=== PATIENT | female | born 1965 | race Caucasian/White ===

== ENCOUNTER 2020-05-07 11:36 | Day surgery (SDC) | payer OTHER ==
[~2020-05-07 11:36] MED LIST: PROPOFOL 200 MG/20 ML VIAL ONE
[2020-05-07] MEDS ORDERED: Fentanyl 100 MCG/2 ML VIAL ONE ×2 (12:46→13:22)
[2020-05-07] MEDS ORDERED: Midazolam HCl 2 mg/2 ml Vial ONE (13:27)
[2020-05-07] MEDS ORDERED: Propofol 500 MG/50 ML VIAL ONE (13:27)
[2020-05-07] MEDS ORDERED: HYDROcodone/Acetaminophen 5/325 mg Tablet ONE (14:45)
--- NOTE | 2020-05-07 16:07 | RAD ---
EXAM: 2 views of the left ankle HISTORY: Ankle pain COMPARISON: None FINDINGS: 2 limited fluoroscopic views of the left ankle shows a fracture of the medial malleolus. Th ere is also a spiral fracture of the distal fibula. An overlying fiberglass splint obscures fine bony and soft tissue detail. There is normal alignment of the ankle mortise. IMPRESSION: Bimalleolar fracture
--- NOTE | 2020-05-08 10:03 | OP ---
DATE OF PROCEDURE: 05/07/2020 PREOPERATIVE DIAGNOSIS: Left ankle fracture dislocation with subluxation of talus from underneath mortise. POSTOPERATIVE DIAGNOSIS: Left ankle fracture dislocation with subluxation of talus from underneath mortise. PROCEDURE PERFORMED: Closed reduction of left ankle subluxation with application of splint. ANESTHESIA: TIVA. TOP LIFT SCOURER: Abran Diaz PA-C TOURNIQUET TIME: Zero. ESTIMATED BLOOD LOSS: Zero. COMPLICATIONS: None. DRAINS: None. SPECIMENS: None. OUTCOME: Satisfactory closed reduction. INDICATIONS FOR PROCEDURE: The patient is a pleasant 54-year-old lady, who presents today for evaluation of a left ankle fracture dislocation. She reports on May 04, 2020, she was stepping out of her 's truck when she landed awkwardly and rolled her left ankle. She was seen and evaluated into the emergency room in [place], [place]. However, they were not able to satisfactorily close reduce the significant lateral shift of the talus at the mortise. Upon evaluation in my clinic earlier today, the patient was found to have fracture blisters medially and a clearly displaced fracture with near dislocation of the talus. As such, the patient was now brought to the operating room for closed reduction maneuver to relieve the tension off the soft tissues with a planned staged stabilization procedure once the soft tissue has recovered. Informed consent has been obtained. I believe all questions have been answered. DESCRIPTION OF PROCEDURE: Following the induction of TIVA anesthesia, a closed reduction was performed and this was confirmed under AP and lateral C-arm imaging. Once acceptable alignment was achieved, the medial fracture blister was unroofed and then dressed with Xeroform and gauze dressing. This was then followed by application of a Trilaminar well-padded short-leg splint. At the completion of splint application, another AP and lateral C-arm image was obtained that showed continued good alignment of the fracture dislocation. The patient was subsequently transferred to the recovery room in stable condition. There were no complications. She tolerated the procedure well. Job ID: [id number]
== END 2020-05-07 15:35 | disposition home or self-care (01) ==
LOC: SDC 11:36
PROVIDERS: ATTEND Orthopaedic Surgery
PROC: 0QSHXZZ Reposition Left Tibia, External Approach (ICD-10-PCS; principal; 2020-05-07)
DX: S82.842A Displaced bimalleolar fracture of left lower leg, initial encounter for closed fracture (principal); Z79.899 Other long term (current) drug therapy; V48.4XXA Person boarding or alighting a car injured in noncollision transport accident, initial encounter
CPT/HCPCS: 76000; J0690; J2250; J2704; J3010

== ENCOUNTER 2020-05-14 10:34 | Day surgery (SDC) | payer OTHER ==
[2020-05-14] MEDS ORDERED: PROPOFOL 200 MG/20 ML VIAL ONE (11:56)
[2020-05-14] MEDS ORDERED: Ondansetron PF 4 MG/2 ML Vial ONE (11:56)
[2020-05-14] MEDS ORDERED: Dexamethasone 20 MG/5 ML VIAL ONE ×2 (11:56)
[2020-05-14] MEDS ORDERED: Ropivacaine 0.5% HCl/PF (150 MG/30 ML VIAL) ONE (11:56)
[2020-05-14] MEDS ORDERED: Bupivacaine HCl 0.5%/Epinephrine 1:200,000/PF 30 ml Vial ONE (11:56)
[2020-05-14] MEDS ORDERED: Lidocaine 1% PF 5 ML VIAL ONE (11:56)
[2020-05-14] MEDS ORDERED: Midazolam HCl 2 mg/2 ml Vial ONE (11:57)
[2020-05-14] MEDS ORDERED: Fentanyl 100 MCG/2 ML VIAL ONE (11:57)
[2020-05-14] MEDS ORDERED: Dexamethasone 4 mg/ml Vial ONE (11:58)
[2020-05-14] MEDS ORDERED: Zolpidem Tartrate 5 MG TAB PO PRN (12:42)
[2020-05-14] MEDS ORDERED: Ropivacaine 0.2% 550 ML 550 ML NERVE BLCK SCH (12:42)
[2020-05-14] MEDS ORDERED: traMADol HCl 50 MG TAB PO PRN ×2 (12:42)
[2020-05-14] MEDS ORDERED: HYDROcodone/Acetaminophen 10/325 mg Tablet PO PRN ×2 (12:42)
[2020-05-14] MEDS ORDERED: Promethazine HCl 25 MG/ML VIAL IM PRN (12:42)
[2020-05-14] MEDS ORDERED: Ondansetron PF 4 MG/2 ML Vial IVP PRN (12:42)
[2020-05-14] MEDS ORDERED: Fentanyl 100 MCG/2 ML VIAL IV PRN (12:42)
--- NOTE | 2020-05-14 15:19 | RAD ---
Radiograph left ankle 2 views: 05/14/2020 HISTORY: 54-year-old female with traumatic ankle pain COMPARISON: 05/07/2020 FINDINGS: Both the current study and the prior study are small [id number] fluoroscopic spot images obtained with C-arm. The splint has now been removed. The previously demonstrated medial and lateral malleoli are fractures have been reduced. New metallic plate and screws are present from distal fibul ar diaphysis to lateral malleolus tip. 2 new lack screws through the medial malleolus. Ankle mortise is congruent. Total of 3 current fluoroscopic spot images. IMPRESSION: 1. Status post open reduction internal fixation of lateral malleolus fracture. 2. Status post lag screw fixation of medial malleolus fracture.
[2020-05-14] MEDS ORDERED: Ketorolac Tromethamine 30 MG/ML VIAL ONE (15:53)
--- NOTE | 2020-05-15 08:16 | OP ---
DATE OF PROCEDURE: 05/14/2020 OPERATION PERFORMED: Open reduction and internal fixation of left ankle fracture, bimalleolar. PREOPERATIVE DIAGNOSIS: Left displaced ankle fracture. POSTOPERATIVE DIAGNOSIS: Left displaced ankle fracture. COMPLICATIONS: None. ESTIMATED BLOOD LOSS: Minimal. ARTS ADMINISTRATOR: Yoseph Higgins PA-C. IMPLANTS: Synthes 7-hole 1/3 tubular plate with nonlocking screws and 4.0 partially-threaded screws. INDICATIONS: Ms. Ramos is a 54-year-old female who has fallen and fractured her left ankle. She has been indicated for open reduction and internal fixation of the left ankle fracture. Risks have been reviewed in detail. She has elected to proceed with the operation. DESCRIPTION OF PROCEDURE: Ms. Ramos was identified in the preoperative holding area. Her correct extremity was marked. She was carried to the operating room. She was positioned supine. General anesthesia was induced. A multidisciplinary time-out was performed. The left lower extremity was prepped and draped in sterile fashion. We began the procedure with a lateral approach to the fibula. We dissected down through the subcutaneous tissues to the fascia over the bone. The fracture was identified and the bony edges were cleared. At this point, we pulled traction on the fibula. We reduced the fibular fracture. We held this with a reduction clamp. We then placed an interfragmentary screw across the fracture. Next, we placed a 1/3 tubular plate along the lateral cortex. Multiple screws were placed proximally and distally along the bone. We had obtained secure fixation. We took x-ray images in orthogonal planes to confirm hardware placement and fracture alignment. There were no complications. At this point, we made a medial incision. We dissected down through the subcutaneous tissues to the medial malleolus. Again, we cleared the fracture. We irrigated the joint and removed any small bony fragments. We reduced the medial malleolus back into its anatomic position and placed two 4.0 partially-threaded screws across the fracture. Again, we took x-ray images. We took a stress view x-ray, which was negative. We thoroughly irrigated with copious lavage and closed appropriately in layers. A sterile dressing was applied. The patient was taken to the recovery room in good condition. Job ID: [id number]
== END 2020-05-14 17:20 | disposition home or self-care (01) ==
LOC: SDC 10:34
PROVIDERS: ATTEND Orthopaedic Surgery
PROC: 0QSK04Z Reposition Left Fibula with Internal Fixation Device, Open Approach (ICD-10-PCS; principal; 2020-05-14)
DX: S82.842A Displaced bimalleolar fracture of left lower leg, initial encounter for closed fracture (principal)
CPT/HCPCS: 76000; A4306; C1713; J0670; J0690; J1100; J1885; J2001; J2250; J2405; J2704; J2795; J3010